=== PATIENT | male | born 1960 | race Caucasian/White ===

== ENCOUNTER 2020-08-29 23:52 | Observation (INO) ==
[2020-08-30] MEDS ORDERED: 0.9 % Sodium Chloride 1,000 ML IV ONE ×2 (01:22→02:26)
[2020-08-30 01:24] LABS: Basophils # 0.1 K/mcL (0.0-0.2); Basophils % 0.5 %; Eosinophils # 0.2 K/mcL (0.0-0.6); Eosinophils % 0.9 %; Hematocrit 52.1 % (37.5-50.1); Hemoglobin 16.4 g/dL (12.9-16.9); Immature Granulocytes % 0.9 % (0-4); Lymphocytes # 1.9 K/mcL (0.6-4.6); Lymphocytes % 11.2 %; Mean Corpuscular HGB Conc 31.5 g/dL (31.6-35.5); Mean Corpuscular Hemoglobin 26.2 pg (28.0-33.3); Mean Corpuscular Volume 83.1 fL (83.0-100.0); Mean Platelet Volume 9.6 fL (9.4-12.4); Monocytes # 1.8 K/mcL (0.0-1.3); Monocytes % 10.2 %; Neutrophils # 13.1 K/mcL (1.6-8.9); Nucleated Red Blood Cells 0.1 /100 WBC (0); Platelet Count 245 K/mcL (140-400); Red Blood Count 6.27 M/mcL (4.19-5.50); Red Cell Distribution Width 20.5 % (11.5-14.5); Segmented Neutrophils % 76.3 %; White Blood Count 17.2 K/mcL (4.3-11.1)
[2020-08-30 01:31] LABS: INR 1.1; Prothrombin Time 12.7 Seconds (9.4-12.1)
[2020-08-30 01:34] LABS: Activated Partial Thrombo Time 37.9 Seconds (26.0-36.0)
[2020-08-30 01:39] LABS: Albumin/Globulin Ratio 1.1 (1.1-2.2); Bilirubin,Total 0.6 mg/dL (0.3-1.0); Calcium 9.2 mg/dL (8.6-10.3); Globulin 3.6 g/dL (2.4-3.5); Phosphorous 3.6 mg/dL (2.7-4.5); Potassium 3.2 mEq/L (3.5-5.1); Total Protein 7.6 g/dL (6.4-8.9)
[2020-08-30 01:42] LABS: Troponin I 0.03 ng/mL (< 0.04)
[2020-08-30] MEDS ORDERED: cefTRIAXone 1,000 MG in 0.9 % Sodium Chloride Mini Bag 100 ML IVPB ONE (02:18)
[2020-08-30 04:36] LABS: Bilirubin,Urine Negative (Negative); Blood,Urine Small (Negative); Clarity,Urine Clear (Clear); Color,Urine Yellow (Yellow); Glucose,Urine (UA) Normal (Normal); Ketones,Urine Negative (Negative); Leukocyte Esterase,Urine Negative (Negative); Nitrite,Urine Negative (Negative); Protein,Urine Trace mg/dL (Neg-Trace); Specific Gravity,Urine 1.015 (1.010-1.025); Urobilinogen,Urine Normal (Normal)
[2020-08-30 04:43] LABS: Bacteria,Urine Few per hpf (None-Few); Hyaline Casts,Urine Few per lpf (None Seen); Squamous Epithelial Cell,Urine Few per hpf (None-Few)
[2020-08-30 05:38] LABS: Amphetamine Screen,Urine Negative ng/mL (Cutoff=1000); Barbiturate Screen,Urine Negative ng/mL (Cutoff=200); Benzodiazepines Screen,Urine Positive ng/mL (Cutoff=200); Cannabinoid Screen,Urine Negative ng/mL (Cutoff = 50); Cocaine Screen,Urine Negative ng/mL (Cutoff= 300); Opiate Screen,Urine Negative ng/mL (Cutoff=300); Phencyclidine Screen,Urine Negative ng/mL (Cutoff=25)
[2020-08-30] MEDS ORDERED: Naloxone 0.4 MG/ML INJ IVP PRN (06:03)
[2020-08-30] MEDS: 0.9 % Sodium Chloride 1,000 ML IVC SCH (07:10)
[2020-08-30] MEDS ORDERED: Permethrin Cream Rinse 60 ML LIQUID TP ONE (11:45)
[2020-08-30] MEDS: Nicotine 21 MG PATCH.TD24 TD SCH (11:54)
[2020-08-30] MEDS: risperiDONE 1 MG TABLET PO SCH ×2 (11:55→20:18)
[2020-08-30] MEDS: Aspirin Enteric Coated 81 MG Tablet PO SCH (11:55)
[2020-08-30 12:00] LABS: ABG Base Excess -2 mEq/L (-2 to 3); ABG HCO3 26 mEq/L (21-27); ABG Oxygen Saturation 90 % (95-98); ABG PCO2 52 mmHg (35-45); ABG PO2 65 mmHg (85-104); ABG TCO2 27 mEq/L (20-26)
[2020-08-30] MEDS: Ipratropium/Albuterol Neb 3 ML IH SCH ×3 (12:51→20:51)
[2020-08-30] MEDS: Gabapentin 300 MG CAPSULE PO SCH ×3 (13:53→20:20)
[2020-08-30] MEDS: diazePAM 10 MG TABLET PO PRN (16:10)
[2020-08-30] MEDS: QUEtiapine Fumarate 100 MG TABLET PO SCH (20:19)
[2020-08-31] MEDS: 0.9 % Sodium Chloride 1,000 ML IVC SCH (00:46)
[2020-08-31] MEDS: Ipratropium/Albuterol Neb 3 ML IH SCH ×4 (03:56→21:40)
[2020-08-31 06:13] LABS: Hematocrit 47.5 % (37.5-50.1); Hemoglobin 14.8 g/dL (12.9-16.9); Mean Corpuscular HGB Conc 31.2 g/dL (31.6-35.5); Mean Corpuscular Hemoglobin 26.1 pg (28.0-33.3); Mean Corpuscular Volume 83.6 fL (83.0-100.0); Mean Platelet Volume 9.3 fL (9.4-12.4); Platelet Count 222 K/mcL (140-400); Red Blood Count 5.68 M/mcL (4.19-5.50); Red Cell Distribution Width 19.9 % (11.5-14.5); White Blood Count 13.6 K/mcL (4.3-11.1)
[2020-08-31 06:37] LABS: Alanine Aminotransferase 21 Units/L (7-52); Albumin 3.2 g/dL (3.5-5.7); Albumin/Globulin Ratio 1.1 (1.1-2.2); Alkaline Phosphatase 91 Units/L (34-104); Aspartate Amino Transferase 34 Units/L (13-39); BUN/Creatinine Ratio 19 (6-26); Bilirubin,Total 0.5 mg/dL (0.3-1.0); Blood Urea Nitrogen 21 mg/dL (6-20); Calcium 8.3 mg/dL (8.6-10.3); Carbon Dioxide 25 mEq/L (23-29); Chloride 107 mEq/L (98-107); Globulin 2.9 g/dL (2.4-3.5); Glucose 108 mg/dL (70-105); Magnesium 1.8 mg/dL (1.6-2.6); Osmolality,Calculated 290 (280-300); Potassium 3.5 mEq/L (3.5-5.1); Sodium 138 mEq/L (136-145); Total Protein 6.1 g/dL (6.4-8.9); eGFR For African Americans > 60 (> 60); eGFR For Non-African Americans > 60 (> 60)
[2020-08-31] MEDS: Neosporin OINT 15 GM TUBE TP SCH ×3 (09:19→19:48)
[2020-08-31] MEDS: risperiDONE 1 MG TABLET PO SCH ×2 (09:21→19:46)
[2020-08-31] MEDS: Gabapentin 300 MG CAPSULE PO SCH ×3 (09:21→19:47)
[2020-08-31] MEDS: Aspirin Enteric Coated 81 MG Tablet PO SCH (09:21)
[2020-08-31] MEDS: Nicotine 21 MG PATCH.TD24 TD SCH (09:21)
[2020-08-31] MEDS ORDERED: Mag Hydrox/Al Hydrox/Simeth 30 ML UDC PO ONE (10:16)
[2020-08-31] MEDS: diazePAM 10 MG TABLET PO PRN ×2 (10:31→19:53)
[2020-08-31] MEDS: Famotidine 20 MG/2 ML VIAL IVP SCH ×2 (10:32→19:48)
[2020-08-31] MEDS: cefTRIAXone 1,000 MG in Water for inj. (sterile) 10 ML IVP SCH (10:37)
[2020-08-31] MEDS ORDERED: Acetaminophen 325 MG TABLET PO PRN (19:31)
[2020-08-31] MEDS: QUEtiapine Fumarate 100 MG TABLET PO SCH (19:47)
[2020-09-01] MEDS: Ipratropium/Albuterol Neb 3 ML IH SCH ×3 (04:16→16:39)
[2020-09-01] MEDS: cefTRIAXone 1,000 MG in Water for inj. (sterile) 10 ML IVP SCH (07:39)
[2020-09-01] MEDS: Famotidine 20 MG/2 ML VIAL IVP SCH (07:40)
[2020-09-01] MEDS: Aspirin Enteric Coated 81 MG Tablet PO SCH (07:41)
[2020-09-01] MEDS: Nicotine 21 MG PATCH.TD24 TD SCH (07:41)
[2020-09-01] MEDS: risperiDONE 1 MG TABLET PO SCH (07:41)
[2020-09-01] MEDS: Gabapentin 300 MG CAPSULE PO SCH ×2 (07:41→14:22)
[2020-09-01] MEDS: Neosporin OINT 15 GM TUBE TP SCH (07:42)
[2020-09-01] MEDS: diazePAM 10 MG TABLET PO PRN (07:48)
[2020-09-01 11:24] VITALS: BP 141/93
== END 2020-09-01 19:35 | disposition home or self-care (01) ==
LOC: EMEROOGRE 23:52 → INPGRE 23:52 → SUATTDRO 08-30 05:46 → INPGRE 08-30 06:00
PROVIDERS: ADMIT Family Medicine; ATTEND Family Medicine

== ENCOUNTER 2020-11-13 11:48 | Inpatient (IN) ==
[2020-11-13 15:25] LABS: ABG Base Excess -3 mEq/L (-2 to 3); ABG HCO3 21 mEq/L (21-27); ABG Oxygen Saturation 100 % (95-98); ABG PCO2 31 mmHg (35-45); ABG PH 7.43 pH Units (7.32-7.45); ABG PO2 167 mmHg (85-104); ABG TCO2 22 mEq/L (20-26)
[2020-11-13] MEDS ORDERED: Permethrin Cream Rinse 60 ML LIQUID TP ONE (15:39)
[2020-11-13] MEDS ORDERED: Perflutren Lipid Microsphere 1.3 ML in 0.9 % Sodium Chloride 8.7 ML IVP PRN (16:16)
[2020-11-13] MEDS ORDERED: Albuterol 2.5 MG/3 ML NEBULIZER IH PRN (16:37)
[2020-11-13] MEDS ORDERED: Acetaminophen 650 MG RECTAL SUPP RC PRN (16:57)
[2020-11-13] MEDS: Furosemide 20 MG/2 ML VIAL IVP SCH (17:00)
[2020-11-13] MEDS: Nicotine 21 MG PATCH.TD24 TD SCH (17:00)
[2020-11-13] MEDS ORDERED: QUEtiapine Fumarate 25 MG TABLET PO SCH (21:00)
[2020-11-13] MEDS: Topiramate 25 MG TABLET PO SCH (21:32)
[2020-11-13] MEDS: Gabapentin 300 MG CAPSULE PO SCH (21:32)
[2020-11-13] MEDS: *HR* OxyCODONE/APAP 7.5/325 TABLET PO PRN (21:35)
[2020-11-14 05:12] LABS: Basophils # 0.1 K/mcL (0.0-0.2); Basophils % 0.6 %; Eosinophils # 0.6 K/mcL (0.0-0.6); Eosinophils % 4.9 %; Hemoglobin 13.1 g/dL (12.9-16.9); Immature Granulocytes % 0.6 % (0-4); Lymphocytes # 2.9 K/mcL (0.6-4.6); Lymphocytes % 23.8 %; Mean Corpuscular HGB Conc 31.2 g/dL (31.6-35.5); Mean Corpuscular Hemoglobin 24.8 pg (28.0-33.3); Mean Corpuscular Volume 79.4 fL (83.0-100.0); Mean Platelet Volume 9.7 fL (9.4-12.4); Monocytes # 1.9 K/mcL (0.0-1.3); Monocytes % 15.7 %; Neutrophils # 6.6 K/mcL (1.6-8.9); Nucleated Red Blood Cells 0.2 /100 WBC (0); Platelet Count 198 K/mcL (140-400); Red Blood Count 5.29 M/mcL (4.19-5.50); Red Cell Distribution Width 19.7 % (11.5-14.5); Segmented Neutrophils % 54.4 %; White Blood Count 12.1 K/mcL (4.3-11.1)
[2020-11-14 05:33] LABS: Alanine Aminotransferase 131 Units/L (7-52); Albumin 3.4 g/dL (3.5-5.7); Albumin/Globulin Ratio 1.1 (1.1-2.2); Alkaline Phosphatase 77 Units/L (34-104); Aspartate Amino Transferase 131 Units/L (13-39); BUN/Creatinine Ratio 30 (6-26); Bilirubin,Total 0.6 mg/dL (0.3-1.0); Blood Urea Nitrogen 39 mg/dL (6-20); Calcium 8.4 mg/dL (8.6-10.3); Carbon Dioxide 27 mEq/L (23-29); Chloride 100 mEq/L (98-107); Globulin 3.2 g/dL (2.4-3.5); Glucose 85 mg/dL (70-105); Osmolality,Calculated 293 (280-300); Sodium 137 mEq/L (136-145); Total Protein 6.6 g/dL (6.4-8.9); eGFR For African Americans > 60 (> 60); eGFR For Non-African Americans 56 (> 60)
[2020-11-14] MEDS ORDERED: *HR* Enoxaparin 30 MG/0.3 ML SYRINGE SQ SCH (06:00)
[2020-11-14] MEDS: Gabapentin 300 MG CAPSULE PO SCH ×3 (09:16→20:08)
[2020-11-14] MEDS: Furosemide 20 MG/2 ML VIAL IVP SCH ×2 (09:16→16:50)
[2020-11-14] MEDS: *HR* OxyCODONE/APAP 7.5/325 TABLET PO PRN ×3 (09:16→23:05)
[2020-11-14] MEDS: Nicotine 21 MG PATCH.TD24 TD SCH (09:17)
[2020-11-14] MEDS ORDERED: diazePAM 10 MG TABLET PO PRN (18:09)
[2020-11-14] MEDS: Topiramate 25 MG TABLET PO SCH (20:08)
[2020-11-14] MEDS: QUEtiapine Fumarate 100 MG TABLET PO SCH (20:08)
[2020-11-14] MEDS ORDERED: QUEtiapine Fumarate 25 MG TABLET PO SCH (21:00)
[2020-11-15 05:43] LABS: Hemoglobin 12.9 g/dL (12.9-16.9); Mean Corpuscular HGB Conc 30.7 g/dL (31.6-35.5); Mean Corpuscular Hemoglobin 24.4 pg (28.0-33.3); Mean Corpuscular Volume 79.4 fL (83.0-100.0); Mean Platelet Volume 9.7 fL (9.4-12.4); Platelet Count 224 K/mcL (140-400); Red Blood Count 5.29 M/mcL (4.19-5.50); Red Cell Distribution Width 19.7 % (11.5-14.5); White Blood Count 10.7 K/mcL (4.3-11.1)
[2020-11-15 06:04] LABS: Alanine Aminotransferase 94 Units/L (7-52); Albumin/Globulin Ratio 0.9 (1.1-2.2); Alkaline Phosphatase 69 Units/L (34-104); Aspartate Amino Transferase 72 Units/L (13-39); BUN/Creatinine Ratio 32 (6-26); Bilirubin,Total 0.5 mg/dL (0.3-1.0); Blood Urea Nitrogen 41 mg/dL (6-20); Calcium 8.6 mg/dL (8.6-10.3); Carbon Dioxide 30 mEq/L (23-29); Chloride 101 mEq/L (98-107); Globulin 3.4 g/dL (2.4-3.5); Glucose 108 mg/dL (70-105); Magnesium 1.9 mg/dL (1.6-2.6); Osmolality,Calculated 297 (280-300); Potassium 3.4 mEq/L (3.5-5.1); Sodium 138 mEq/L (136-145); Total Protein 6.4 g/dL (6.4-8.9); eGFR For African Americans > 60 (> 60); eGFR For Non-African Americans 58 (> 60)
[2020-11-15 06:06] LABS: BUN/Creatinine Ratio 32 (6-26); Blood Urea Nitrogen 41 mg/dL (6-20); Calcium 8.6 mg/dL (8.6-10.3); Carbon Dioxide 30 mEq/L (23-29); Chloride 101 mEq/L (98-107); Glucose 110 mg/dL (70-105); Osmolality,Calculated 297 (280-300); Potassium 3.4 mEq/L (3.5-5.1); Sodium 138 mEq/L (136-145); eGFR For African Americans > 60 (> 60); eGFR For Non-African Americans 57 (> 60)
[2020-11-15] MEDS: *HR* Enoxaparin 40 MG/0.4 ML SYRINGE SQ SCH (06:27)
[2020-11-15] MEDS: QUEtiapine Fumarate 100 MG TABLET PO SCH ×2 (08:40→20:38)
[2020-11-15] MEDS: Gabapentin 300 MG CAPSULE PO SCH ×3 (08:40→20:38)
[2020-11-15] MEDS: Furosemide 20 MG/2 ML VIAL IVP SCH ×2 (08:41→15:36)
[2020-11-15] MEDS: Nicotine 21 MG PATCH.TD24 TD SCH (08:41)
[2020-11-15] MEDS: risperiDONE 1 MG TABLET PO SCH (08:41)
[2020-11-15 12:53] LABS: Bilirubin,Urine Negative (Negative); Blood,Urine Negative (Negative); Clarity,Urine Clear (Clear); Color,Urine Yellow (Yellow); Glucose,Urine (UA) Normal (Normal); Ketones,Urine Negative (Negative); Leukocyte Esterase,Urine Negative (Negative); Nitrite,Urine Negative (Negative); Protein,Urine Negative (Neg-Trace); Urobilinogen,Urine Normal (Normal)
[2020-11-15] MEDS ORDERED: Azithromycin 500 MG in 0.9 % Sodium Chloride 250 ML IVPB SCH (20:00)
[2020-11-15] MEDS: Topiramate 25 MG TABLET PO SCH (20:38)
[2020-11-15] MEDS: *HR* OxyCODONE/APAP 7.5/325 TABLET PO PRN (20:55)
[2020-11-15] MEDS ORDERED: cefTRIAXone 1,000 MG in 0.9 % Sodium Chloride Mini Bag 100 ML IVPB SCH (21:00)
[2020-11-16] MEDS: *HR* Enoxaparin 40 MG/0.4 ML SYRINGE SQ SCH (05:09)
[2020-11-16 07:05] LABS: Hematocrit 43.4 % (37.5-50.1); Hemoglobin 13.3 g/dL (12.9-16.9); Mean Corpuscular HGB Conc 30.6 g/dL (31.6-35.5); Mean Corpuscular Hemoglobin 24.4 pg (28.0-33.3); Mean Corpuscular Volume 79.6 fL (83.0-100.0); Mean Platelet Volume 9.4 fL (9.4-12.4); Platelet Count 226 K/mcL (140-400); Red Blood Count 5.45 M/mcL (4.19-5.50); Red Cell Distribution Width 19.4 % (11.5-14.5); White Blood Count 9.7 K/mcL (4.3-11.1)
[2020-11-16 07:27] LABS: Alanine Aminotransferase 71 Units/L (7-52); Albumin 3.3 g/dL (3.5-5.7); Alkaline Phosphatase 70 Units/L (34-104); Aspartate Amino Transferase 44 Units/L (13-39); BUN/Creatinine Ratio 37 (6-26); Bilirubin,Total 0.4 mg/dL (0.3-1.0); Blood Urea Nitrogen 35 mg/dL (6-20); Calcium 8.8 mg/dL (8.6-10.3); Carbon Dioxide 32 mEq/L (23-29); Chloride 103 mEq/L (98-107); Globulin 3.3 g/dL (2.4-3.5); Glucose 104 mg/dL (70-105); Magnesium 1.7 mg/dL (1.6-2.6); Osmolality,Calculated 298 (280-300); Potassium 3.8 mEq/L (3.5-5.1); Sodium 140 mEq/L (136-145); Total Protein 6.6 g/dL (6.4-8.9); eGFR For African Americans > 60 (> 60); eGFR For Non-African Americans > 60 (> 60)
[2020-11-16] MEDS: Gabapentin 300 MG CAPSULE PO SCH ×2 (07:59→16:26)
[2020-11-16] MEDS: QUEtiapine Fumarate 100 MG TABLET PO SCH (07:59)
[2020-11-16] MEDS: risperiDONE 1 MG TABLET PO SCH (07:59)
[2020-11-16] MEDS: *HR* OxyCODONE/APAP 7.5/325 TABLET PO PRN ×2 (08:00→16:26)
[2020-11-16] MEDS: Furosemide 20 MG/2 ML VIAL IVP SCH ×2 (08:00→16:26)
[2020-11-16] MEDS: Nicotine 21 MG PATCH.TD24 TD SCH (08:01)
[2020-11-16] MEDS ORDERED: Isovue-370 500 ML BOTTLE IVP ONE ×2 (08:47→08:52)
[2020-11-16 11:32] LABS: Adenovirus Not Detected (Not Detect); Bordetella Pertussis Not Detected (Not Detect); Chlamydophila pneumoniae Not Detected (Not Detect); Coronavirus 229E Not Detected (Not Detect); Coronavirus HKU1 Not Detected (Not Detect); Coronavirus NL63 Not Detected (Not Detect); Coronavirus OC43 Not Detected (Not Detect); Human Metapneumovirus Not Detected (Not Detect); Human Rhinovirus/Enterovirus Not Detected (Not Detect); Influenza A Subtype 2009 H1 Not Detected (Not Detect); Influenza B Not Detected (Not Detect); Mycoplasma pneumoniae Not Detected (Not Detect); Parainfluenza Virus 1 Not Detected (Not Detect); Parainfluenza Virus 2 Not Detected (Not Detect); Parainfluenza Virus 3 Not Detected (Not Detect); Parainfluenza Virus 4 Not Detected (Not Detect); Respiratory Syncytial Virus Not Detected (Not Detect); SARS-CoV-2 Not Detected (Not Detect)
[2020-11-16 12:07] LABS: Ferritin 686 ng/mL (20-250)
[2020-11-16] MEDS ORDERED: Enoxaparin Weight Dosing SQ SCH (12:11)
[2020-11-16] MEDS ORDERED: *HR* Heparin 5,000 UNIT/ML VIAL IVP PRN ×2 (12:22)
[2020-11-16] MEDS ORDERED: *HR* Heparin 5,000 UNIT/ML VIAL IVP ONE (12:22)
[2020-11-16] MEDS ORDERED: Heparin 25,000UNIT/250ML 1/2NS 25,000 UNIT/250 ML IV.SOLN IVC SCH (12:30)
[2020-11-16 13:30] LABS: Heparin anti-factor XA UFH 0.13 IU/mL (0.30-0.70)
[2020-11-16 13:31] LABS: INR 1.1
[2020-11-16 13:35] LABS: Hematocrit 43.4 % (37.5-50.1); Hemoglobin 13.5 g/dL (12.9-16.9); Mean Corpuscular HGB Conc 31.1 g/dL (31.6-35.5); Mean Corpuscular Hemoglobin 24.9 pg (28.0-33.3); Mean Corpuscular Volume 79.9 fL (83.0-100.0); Mean Platelet Volume 10.5 fL (9.4-12.4); Platelet Count 231 K/mcL (140-400); Red Blood Count 5.43 M/mcL (4.19-5.50); Red Cell Distribution Width 19.4 % (11.5-14.5)
[2020-11-16 13:35] LABS: C-Reactive Protein 45 mg/L (Less than 10)
[2020-11-16 14:44] LABS: ABG Base Excess 4 mEq/L (-2 to 3); ABG HCO3 32 mEq/L (21-27); ABG Oxygen Saturation 97 % (95-98); ABG PCO2 58 mmHg (35-45); ABG PH 7.35 pH Units (7.32-7.45); ABG PO2 93 mmHg (85-104); ABG TCO2 33 mEq/L (20-26)
[2020-11-16 15:59] VITALS: BP 115/77; PULSE 80; RESP 15; TEMP 97.3; O2SAT 96
== END 2020-11-16 17:50 | disposition short-term general hospital (02) | DRG 291 ==
LOC: INPGRE
PROVIDERS: ADMIT Family Medicine; ATTEND Family Medicine